=== PATIENT | male | born 1925 | race Caucasian/White ===

== ENCOUNTER 2016-11-27 10:56 | Inpatient (IN) | payer MEDICARE, OTHER ==
[~2016-11-27] VITALS: Ht 185.4 cm; Wt 80.3 kg
[~2016-11-27 10:56] MED LIST: FINA5TAB4 PO; FURO40TA4 PO; GEMF600T3 PO; LOSA25TA8 PO; LOVA10TA2 OR; METH-824; [UNRECOGNIZED DRUG - CODE] GT
[2016-11-27] MEDS ORDERED: SODIUM CHLORIDE 0.9% 1,000 ML IVB ONE (11:53)
[2016-11-27] MEDS ORDERED: ONDANSETRON HCL 4 MG/2 ML VIAL IV ONE (12:00)
[2016-11-27 12:21] LABS: Basophils # (auto) 0 uL; Basophils % (auto) 0.3 % (0.0-2.0); Eosinophils # (auto) 0.2 uL; Eosinophils % (auto) 2.5 % (0.0-7.0); Hematocrit 36.5 % (41.0-53.0); Hemoglobin 12.1 g/dL (13.5-17.5); Lymphocytes # (auto) 2.1 uL; Lymphocytes % (auto) 29.6 % (10.0-50.0); Mean Corpuscular Hemoglobin 30.2 pg (28.0-32.0); Mean Corpuscular Hgb Conc. 33.1 g/dL (32.0-36.0); Mean Corpuscular Volume 91.2 fL (80.0-100.0); Mean Platelet Volume 9.7 fL (7.4-10.4); Monocytes # (auto) 0.3 uL; Monocytes % (auto) 4.2 % (0.0-12.0); Neutrophils # (auto) 4.5 uL; Neutrophils % (auto) 63.4 % (37.0-80.0); Platelet Count (auto) 128 10^3/uL (140-450); Red Cell Distribution Width 16.7 % (11.6-16.0)
[2016-11-27 12:39] LABS: INR 1.03 (0.9-1.15); Partial Thromboplastin Time 26.6 sec (22.64-33.71); Prothrombin Time 11.1 sec (9.37-12.3)
[2016-11-27 12:42] LABS: Albumin 2.2 g/dL (3.4-5.0); BUN/Creatinine Ratio 29.5; Bilirubin, Total 0.6 mg/dL (0.2-1.0); Magnesium 2.1 mg/dL (1.6-2.6); Potassium 4.1 mmol/L (3.5-5.1); Total Protein 6.2 g/dL (6.4-8.2)
[2016-11-27 13:09] LABS: Urine Bilirubin Negative (Negative); Urine Blood TRACE /uL (Negative); Urine Color Yellow (Yellow); Urine Glucose Normal (Normal); Urine Ketone Negative (Negative); Urine Mucus FEW (None Seen); Urine Nitrite Negative (Negative); Urine RBC 6 /hpf (0 - 3); Urine Triple Phosphate Crystal MOD /hpf (None Seen); Urine Urobilinogen Normal (Negative)
[2016-11-27] MEDS ORDERED: LEVOFLOXACIN 500MG 100 ML IV ONE (13:45)
[2016-11-27] MEDS ORDERED: DOCUSATE SOD 100 MG CAP PO PRN (21:15)
[2016-11-27] MEDS ORDERED: NITROGLYCERIN 0.4 MG SL TAB SL PRN (21:15)
[2016-11-27] MEDS ORDERED: ONDANSETRON HCL 4 MG/2 ML VIAL IV PRN (21:15)
[2016-11-27] MEDS ORDERED: ACETAMINOPHEN 325 MG TAB PO PRN (21:15)
[2016-11-27] MEDS ORDERED: MORPHINE SULF INJ 2 MG/ML SYRINGE 1ML IV PRN (21:15)
[2016-11-27] MEDS ORDERED: SODIUM CHLORIDE 0.9% 500 ML IV ONE (21:45)
[2016-11-27] MEDS: SODIUM CHLORIDE 0.9% 1,000 ML IV SCH (21:45)
[2016-11-27] MEDS ORDERED: PIPERACILLIN-TAZOB 3.375GM 100 ML IV ONE ×2 (21:45→22:00)
[2016-11-27] MEDS ORDERED: VANCOMYCIN 1GM/250ML D5W 250 ML IV ONE (22:00)
[2016-11-27 23:06] VITALS: BP 108/60
[2016-11-27 23:20] VITALS: BP 108/60
[2016-11-28] VITALS (7 sets, daily range): BP systolic 108–132; BP diastolic 52–70
[2016-11-28] MEDS ORDERED: ASPI81CH4 PO (00:35)
[2016-11-28] MEDS ORDERED: INSREG3 SUBCUT (02:02)
[2016-11-28] MEDS: PIPERACILLIN-TAZOB 3.375GM 100 ML IV SCH ×3 (05:20→18:18)
[2016-11-28 05:42] LABS: Basophils # (auto) 0 uL; Basophils % (auto) 0.5 % (0.0-2.0); Eosinophils # (auto) 0.1 uL; Hematocrit 32.8 % (41.0-53.0); Hemoglobin 10.9 g/dL (13.5-17.5); Lymphocytes # (auto) 1.2 uL; Lymphocytes % (auto) 35.6 % (10.0-50.0); Mean Corpuscular Hemoglobin 30.5 pg (28.0-32.0); Mean Corpuscular Hgb Conc. 33.1 g/dL (32.0-36.0); Mean Corpuscular Volume 92.1 fL (80.0-100.0); Mean Platelet Volume 9.9 fL (7.4-10.4); Monocytes # (auto) 0.3 uL; Monocytes % (auto) 7.6 % (0.0-12.0); Neutrophils # (auto) 1.7 uL; Neutrophils % (auto) 52.3 % (37.0-80.0); Platelet Count (auto) 96 10^3/uL (140-450); White Blood Cell 3.3 10^3/uL (4.4-10.8)
[2016-11-28 06:06] LABS: Potassium 4.1 mmol/L (3.5-5.1)
[2016-11-28 06:09] LABS: BUN/Creatinine Ratio 27.3
[2016-11-28 06:21] LABS: Bilirubin, Total 0.4 mg/dL (0.2-1.0); Total Protein 5.6 g/dL (6.4-8.2)
[2016-11-28] MEDS ORDERED: METF-312 PO (08:10)
[2016-11-28] MEDS ORDERED: DEXTROSE (50%) 50ML SYRG IV PRN (11:30)
[2016-11-28] MEDS: ZINC SULFATE 220 MG CAP PO SCH (11:52)
[2016-11-28] MEDS: ENOXAPARIN SOD 40 MG/0.4 ML SYRINGE SC SCH (11:52)
[2016-11-28] MEDS: InsuLIN REG 1unit/0.01ml Soln (100units/ml) SC SCH ×3 (12:42→22:08)
[2016-11-28] MEDS: ACCU-CHEK COMFORT CURVE STRIP VI SCH ×3 (12:42→22:03)
[2016-11-28] MEDS: Diabetisource AC 1 Liter GT SCH (14:26)
[2016-11-28] MEDS: SODIUM CHLORIDE 0.9% 1,000 ML IV SCH (14:27)
[2016-11-28] MEDS ORDERED: ALBUTEROL SULF 2.5 MG/0.5ML(0.5%) NEB SOLN NEB PRN (23:30)
[2016-11-29] VITALS (7 sets, daily range): BP systolic 114–154; BP diastolic 55–82
[2016-11-29] MEDS: PIPERACILLIN-TAZOB 3.375GM 100 ML IV SCH ×5 (00:58→23:29)
[2016-11-29] MEDS: SODIUM CHLORIDE 0.9% 1,000 ML IV SCH ×2 (05:57→23:29)
[2016-11-29] MEDS: ACCU-CHEK COMFORT CURVE STRIP VI SCH ×4 (06:20→21:40)
[2016-11-29] MEDS: InsuLIN REG 1unit/0.01ml Soln (100units/ml) SC SCH ×4 (06:21→21:40)
[2016-11-29] MEDS ORDERED: LACTULOSE 20Gm/30ML SOLN PO PRN (08:15)
[2016-11-29] MEDS: ENOXAPARIN SOD 40 MG/0.4 ML SYRINGE SC SCH (08:48)
[2016-11-29] MEDS: ZINC SULFATE 220 MG CAP PO SCH (08:48)
[2016-11-30 05:00] VITALS: BP 160/77
[2016-11-30] MEDS: ACCU-CHEK COMFORT CURVE STRIP VI SCH ×3 (05:07→21:50)
[2016-11-30] MEDS: PIPERACILLIN-TAZOB 3.375GM 100 ML IV SCH ×2 (05:07→12:23)
[2016-11-30] MEDS: InsuLIN REG 1unit/0.01ml Soln (100units/ml) SC SCH ×3 (05:08→21:49)
[2016-11-30 09:25] VITALS: BP 125/70
[2016-11-30] MEDS: ZINC SULFATE 220 MG CAP PO SCH (09:46)
[2016-11-30] MEDS: ENOXAPARIN SOD 40 MG/0.4 ML SYRINGE SC SCH (09:46)
[2016-11-30 13:04] VITALS: BP 132/70
[2016-11-30 16:44] VITALS: BP 133/68
[2016-11-30 20:30] VITALS: BP 169/80
[2016-11-30] MEDS: SODIUM CHLORIDE 0.9% 1,000 ML IV SCH (21:51)
[2016-11-30 22:00] VITALS: BP 169/80
[2016-12-01] VITALS (9 sets, daily range): BP systolic 112–164; BP diastolic 59–79
[2016-12-01] MEDS: PIPERACILLIN-TAZOB 3.375GM 100 ML IV SCH ×4 (00:13→17:51)
[2016-12-01] MEDS: MORPHINE SULF INJ 2 MG/ML SYRINGE 1ML IV PRN ×2 (01:22→06:29)
[2016-12-01] MEDS: SODIUM CHLORIDE 0.9% 1,000 ML IV SCH (04:40)
[2016-12-01] MEDS: InsuLIN REG 1unit/0.01ml Soln (100units/ml) SC SCH ×4 (06:50→22:33)
[2016-12-01] MEDS: ACCU-CHEK COMFORT CURVE STRIP VI SCH ×4 (06:50→22:23)
[2016-12-01] MEDS ORDERED: hydrALAZINE HCL 20 MG/ML VL IV PRN (08:45)
[2016-12-01] MEDS: ENOXAPARIN SOD 40 MG/0.4 ML SYRINGE SC SCH (09:56)
[2016-12-01] MEDS: ZINC SULFATE 220 MG CAP PO SCH (09:56)
[2016-12-01] MEDS: metroNIDAZOLE 500 MG TAB PO SCH ×2 (14:33→22:23)
[2016-12-02] MEDS: PIPERACILLIN-TAZOB 3.375GM 100 ML IV SCH ×5 (00:12→23:58)
[2016-12-02] MEDS: SODIUM CHLORIDE 0.9% 1,000 ML IV SCH ×2 (01:45→18:25)
[2016-12-02 05:30] VITALS: BP 146/70
[2016-12-02] MEDS: metroNIDAZOLE 500 MG TAB PO SCH ×3 (05:54→22:02)
[2016-12-02] MEDS: ACCU-CHEK COMFORT CURVE STRIP VI SCH ×4 (06:06→22:01)
[2016-12-02] MEDS: InsuLIN REG 1unit/0.01ml Soln (100units/ml) SC SCH ×4 (06:06→22:00)
[2016-12-02 09:00] VITALS: BP 152/72
[2016-12-02] MEDS: ENOXAPARIN SOD 40 MG/0.4 ML SYRINGE SC SCH (10:14)
[2016-12-02] MEDS: ZINC SULFATE 220 MG CAP PO SCH (10:14)
[2016-12-02 13:00] VITALS: BP 136/71
[2016-12-02 17:00] VITALS: BP 138/69
[2016-12-02 20:00] VITALS: BP 139/81
[2016-12-02 21:39] VITALS: BP 139/81
[2016-12-03] MEDS: Diabetisource AC 1 Liter GT SCH (02:32)
[2016-12-03 04:33] VITALS: BP 156/73
[2016-12-03] MEDS: metroNIDAZOLE 500 MG TAB PO SCH (05:47)
[2016-12-03] MEDS: PIPERACILLIN-TAZOB 3.375GM 100 ML IV SCH ×2 (05:47→09:51)
[2016-12-03] MEDS: InsuLIN REG 1unit/0.01ml Soln (100units/ml) SC SCH ×2 (06:46→09:50)
[2016-12-03] MEDS: ACCU-CHEK COMFORT CURVE STRIP VI SCH ×2 (06:46→09:50)
[2016-12-03 08:02] VITALS: BP 146/68
[2016-12-03] MEDS: ENOXAPARIN SOD 40 MG/0.4 ML SYRINGE SC SCH (09:50)
[2016-12-03] MEDS: ZINC SULFATE 220 MG CAP PO SCH (09:50)
[2016-12-03] MEDS: SODIUM CHLORIDE 0.9% 1,000 ML IV SCH (09:50)
== END 2016-12-03 11:00 | disposition home health service (06) | DRG 189 ==
LOC: EDBD 10:56 → ER 10:56 → TELE 10:57 → TELE-CENTR 23:06 → CENTRAL 11-29 17:19
PROVIDERS: ADMIT Internal Medicine; ATTEND Internal Medicine
DX: J96.21 Acute and chronic respiratory failure with hypoxia (principal); N39.0 Urinary tract infection, site not specified; I13.0 Hypertensive heart and chronic kidney disease with heart failure and stage 1 through stage 4 chronic kidney disease, or unspecified chronic kidney disease; R47.01 Aphasia; G30.9 Alzheimer's disease, unspecified; E11.22 Type 2 diabetes mellitus with diabetic chronic kidney disease; E78.5 Hyperlipidemia, unspecified; F02.80 Dementia in other diseases classified elsewhere, unspecified severity, without behavioral disturbance, psychotic disturbance, mood disturbance, and anxiety; R13.10 Dysphagia, unspecified; B96.5 Pseudomonas (aeruginosa) (mallei) (pseudomallei) as the cause of diseases classified elsewhere; N18.9 Chronic kidney disease, unspecified; K80.20 Calculus of gallbladder without cholecystitis without obstruction; I50.9 Heart failure, unspecified; B96.4 Proteus (mirabilis) (morganii) as the cause of diseases classified elsewhere; D64.9 Anemia, unspecified; D69.6 Thrombocytopenia, unspecified; E11.40 Type 2 diabetes mellitus with diabetic neuropathy, unspecified; I25.10 Atherosclerotic heart disease of native coronary artery without angina pectoris; I77.819 Aortic ectasia, unspecified site; K59.00 Constipation, unspecified; N20.0 Calculus of kidney; N40.0 Benign prostatic hyperplasia without lower urinary tract symptoms; Z80.51 Family history of malignant neoplasm of kidney; Z82.49 Family history of ischemic heart disease and other diseases of the circulatory system; Z99.81 Dependence on supplemental oxygen; Z86.73 Personal history of transient ischemic attack (TIA), and cerebral infarction without residual deficits; Z80.8 Family history of malignant neoplasm of other organs or systems; Z80.6 Family history of leukemia; Z83.3 Family history of diabetes mellitus; Z87.01 Personal history of pneumonia (recurrent); Z87.440 Personal history of urinary (tract) infections; Z87.891 Personal history of nicotine dependence; Z93.1 Gastrostomy status; Z95.0 Presence of cardiac pacemaker; Z88.1 Allergy status to other antibiotic agents; Z79.899 Other long term (current) drug therapy; Z79.82 Long term (current) use of aspirin
CPT/HCPCS: 36415; 71010; 74176; 80053; 81001; 82150; 82962; 83690; 83735; 85025; 85610; 85730; 87081; 87086; 87088; 87186; 87493; 93005; 94761; 96361; 96365; 96367; 96375; J1815; J1956; J2405; J2543

== ENCOUNTER 2017-02-11 13:57 | Emergency (ER) | payer MEDICARE, OTHER ==
[~2017-02-11] VITALS: Ht 180.3 cm; Wt 90.7 kg
[~2017-02-11 13:57] MED LIST changes: +ASPI81CH4 PO; +INSREG3 SUBCUT; +METF-370 PO
[2017-02-11 21:54] VITALS: BP 122/67
== END 2017-02-11 22:56 | disposition home or self-care (01) ==
LOC: ER 14:04
DX: T85.9XXA Unspecified complication of internal prosthetic device, implant and graft, initial encounter (principal); Z46.6 Encounter for fitting and adjustment of urinary device; Z87.891 Personal history of nicotine dependence; Z86.73 Personal history of transient ischemic attack (TIA), and cerebral infarction without residual deficits; J44.9 Chronic obstructive pulmonary disease, unspecified; I25.10 Atherosclerotic heart disease of native coronary artery without angina pectoris; G30.9 Alzheimer's disease, unspecified; E11.9 Type 2 diabetes mellitus without complications; E78.5 Hyperlipidemia, unspecified; Z87.440 Personal history of urinary (tract) infections; Z88.1 Allergy status to other antibiotic agents; Z79.82 Long term (current) use of aspirin; Z79.4 Long term (current) use of insulin; Z96.89 Presence of other specified functional implants
CPT/HCPCS: 51702

== ENCOUNTER 2017-08-11 22:58 | Emergency (ER) | payer MEDICARE, OTHER ==
[~2017-08-11] VITALS: Ht 175.3 cm; Wt 81.6 kg
[~2017-08-11 22:58] MED LIST changes: -FURO40TA4 PO; -GEMF600T3 PO; -INSREG3 SUBCUT; +LOVA20TA4 PO; -METF-370 PO
[2017-08-11 23:27] LABS: Basophils # (auto) 0 uL; Eosinophils # (auto) 0.2 uL; Hemoglobin 11.1 g/dL (13.5-17.5); Lymphocytes # (auto) 0.8 uL; Monocytes # (auto) 0.2 uL; Nucleated Red Blood Cells % 0.1 %; White Blood Cell 3.7 10^3/uL (4.4-10.8)
[2017-08-11 23:31] LABS: Basophils % (auto) 0.8 % (0.0-2.0); Eosinophils % (auto) 5.3 % (0.0-7.0); Hematocrit 33.3 % (41.0-53.0); Mean Corpuscular Hemoglobin 30.9 pg (28.0-32.0); Mean Corpuscular Hgb Conc. 33.2 g/dL (32.0-36.0); Mean Corpuscular Volume 93.1 fL (80.0-100.0); Mean Platelet Volume 8.5 fL (6.9-10.8); Monocytes % (auto) 5.6 % (0.0-12.0); Neutrophils # (auto) 2.4 uL; Neutrophils % (auto) 65.3 % (37.0-80.0); Platelet Count (auto) 71 10^3/uL (140-450); Red Cell Distribution Width 16.8 % (11.8-14.3)
[2017-08-11 23:48] LABS: Albumin 1.9 g/dL (3.4-5.0); BUN/Creatinine Ratio 41.5; Potassium 3.9 mmol/L (3.5-5.1)
[2017-08-11 23:51] LABS: Bilirubin, Total 0.6 mg/dL (0.2-1.0); Total Protein 5.5 g/dL (6.4-8.2)
[2017-08-12] MEDS ORDERED: methylPREDNISolone SOD SUCC 125 MG/2 ML VL IV ONE (05:00)
[2017-08-12 06:18] VITALS: BP 128/63
== END 2017-08-12 07:22 | disposition home or self-care (01) ==
LOC: ER 22:58 → EDBD 22:58 → ER 08-12 07:22
DX: T78.40XA Allergy, unspecified, initial encounter (principal); L29.9 Pruritus, unspecified; R60.0 Localized edema; I25.10 Atherosclerotic heart disease of native coronary artery without angina pectoris; J44.9 Chronic obstructive pulmonary disease, unspecified; E11.9 Type 2 diabetes mellitus without complications; E78.5 Hyperlipidemia, unspecified; I10 Essential (primary) hypertension; Z86.73 Personal history of transient ischemic attack (TIA), and cerebral infarction without residual deficits; Z87.440 Personal history of urinary (tract) infections; Z95.0 Presence of cardiac pacemaker; Z88.1 Allergy status to other antibiotic agents; Z79.82 Long term (current) use of aspirin
CPT/HCPCS: 36415; 71010; 80053; 82962; 85025; 96374; 99285; J2930